=== PATIENT | female | born 1975 | race Two or more races ===

== ENCOUNTER 2019-05-10 10:28 | Day surgery (SDC) | payer MEDICAID, OTHER ==
[~2019-05-10] VITALS: Ht 157.5 cm; Wt 95.3 kg
[2019-05-10] MEDS ORDERED: IOHEXOL 300 MG/ML 100ML BOTTLE IJ ONE ×2 (11:13→12:59)
[2019-05-10] MEDS ORDERED: diphenhdrAMINE HCL 50 MG/1 ML VL ONE ×2 (12:58→14:28)
[2019-05-10] MEDS ORDERED: diphenhdrAMINE HCL 50 MG/1 ML VL IM ONE (13:00)
[2019-05-10] MEDS ORDERED: MORPHINE SULF INJ 2 MG/ML SYRINGE 1ML IV ONE (14:00)
[2019-05-10] MEDS ORDERED: ONDANSETRON HCL 4 MG/2 ML VIAL IV ONE (14:00)
[2019-05-10] MEDS ORDERED: FLUMAZENIL 0.1 MG/ML INJ 10ML MDV IV ONE (14:27)
[2019-05-10] MEDS ORDERED: NALOXONE HCL 0.4 MG/ML VIAL ONE (14:27)
[2019-05-10] MEDS ORDERED: SODIUM CHLORIDE LOCK 10 ML ONE (14:27)
[2019-05-10] MEDS ORDERED: LIDOCAINE VISCOUS 2% 15ML UD ONE (14:28)
[2019-05-10 15:06] LABS: Basophils # (auto) 0 uL; Basophils % (auto) 0.9 % (0.0-2.0); Eosinophils # (auto) 0.2 uL; Hematocrit 35.2 % (36.0-46.0); Hemoglobin 11.5 g/dL (12.2-16.2); Lymphocytes # (auto) 2.3 uL; Lymphocytes % (auto) 43.1 % (10.0-50.0); Mean Corpuscular Hemoglobin 28.5 pg (28.0-32.0); Mean Corpuscular Hgb Conc. 32.7 g/dL (32.0-36.0); Mean Corpuscular Volume 87.2 fL (80.0-100.0); Monocytes # (auto) 0.5 uL; Monocytes % (auto) 8.4 % (0.0-12.0); Neutrophils # (auto) 2.3 uL; Neutrophils % (auto) 43.6 % (37.0-80.0); Platelet Count (auto) 354 10^3/uL (140-450); Red Blood Cells 4.04 10^6/uL (4.0-5.20); Red Cell Distribution Width 16.7 % (11.8-14.3); White Blood Cell 5.4 10^3/uL (4.4-10.8)
[2019-05-10 15:24] LABS: INR < 0.93 (0.9-1.15); Partial Thromboplastin Time 25.2 sec (23.64-32.05)
[2019-05-10] MEDS: fentaNYL CITRATE 100 MCG/2 ML VL ONE ×2 (16:01→16:04)
[2019-05-10] MEDS: MIDAZOLAM HCL 5 MG/ML-1ML VIAL ONE ×2 (16:01→16:04)
[2019-05-10 18:02] VITALS: BP 102/67
== END 2019-05-10 20:50 | disposition home or self-care (01) ==
LOC: ER 10:38 → SUR 10:39 → ER 20:50
PROVIDERS: ATTEND Internal Medicine Gastroenterology
DX: R13.10 Dysphagia, unspecified (principal); K82.9 Disease of gallbladder, unspecified; Z90.710 Acquired absence of both cervix and uterus; Z98.84 Bariatric surgery status; Z98.890 Other specified postprocedural states
CPT/HCPCS: 36415; 43235; 74220; 85025; 85610; 85730; J1200; J2250; J2270; J2405; J3010; J7030; Q9967